=== PATIENT | female | born 1990 | race American Indian/Alaskan Native ===

== ENCOUNTER 2021-11-05 06:05 | Day surgery (SDC) | payer BC ==
[~2021-11-05 06:05] MED LIST: LACTATED RINGERS 1,000 ML IV SCH; MIDAZOLAM 2 MG/2 ML INJ IV NR
--- NOTE | 2021-11-05 06:44 | History and Physical Report ---
History of Present Illness Date of examination: 11/05/21 Chief complaint: Exam under anesthesia, Pap Smear History of present illness: Pt is a 31 year old female with severe anxiety and inability to tolerate in office pelvic examination. Past History Past Medical History: asthma, other (anxiety, Vitamin D deficiency ) Past Surgical History: no surgical history Family/Genetic History: none Social history: no significant social history - Obstetrical History : 0 Medications and Allergies Allergies Allergy/AdvReac Type Severity Reaction Status Date / Time No Known Allergies Allergy Verified 11/03/21 11:45 Home Medications Medication Instructions Recorded Confirmed Last Taken Type No Known Home Medications [No 11/03/21 11/03/21 Unknown History Reported Home Medications] Active Meds: Active Medications Lactated Ringer's (Lactated Ringers) 1,000 mls @ 100 mls/hr IV DIRECT ADI Stop: 11/05/21 23:59 Midazolam HCl (Midazolam 2 Mg/2 Ml Inj) 2 mg IV PREOP NR Stop: 11/05/21 23:59 - Physical Exam Breasts: Positive: deferred Abdomen: Positive: soft Extremities: Positive: normal Results All other labs normal. Assessment and Plan A: Anxiety Cervical Cancer Screening P: Proceed with exam under anesthesia and collection of pap smear
[2021-11-05] MEDS ORDERED: ONDANSETRON 4 MG/2 ML INJ IV PRN (07:35)
[2021-11-05] MEDS ORDERED: ACETAMINOPHEN 325 MG TAB PO PRN (07:35)
[2021-11-05] MEDS ORDERED: KETOROLAC 30 MG/1 ML INJ IV PRN (07:35)
--- NOTE | 2021-11-05 07:35 | Anesthesia Day of Surgery ---
Anesthesia Day of Surgery - Day of Surgery Patient Examined: Yes Patient H&P Reviewed: Yes Patient is NPO: Yes
--- NOTE | 2021-11-05 07:35 | Anesthesia Consultation ---
Anesthesia Consult and Med Hx Date of service: 11/05/21 - Airway Anesthetic Teeth Evaluation: Good ROM Head & Neck: Adequate Mental/Hyoid Distance: Adequate Mallampati Class: Class III Intubation Access Assessment: Possibly Difficult - Pulmonary Exam CTA: Yes - Cardiac Exam Cardiac Exam: RRR - Pre-Operative Health Status ASA Pre-Surgery Classification: ASA2 Proposed Anesthetic Plan: MAC - Pulmonary Hx Smoking: No Hx Asthma: Yes (no INH use in many years) - Cardiovascular System Hx Hypertension: No - Central Nervous System CVA: No - Endocrine Hx Renal Disease: No Hx Liver Disease: No Hx Insulin Dependent Diabetes: No Hx Non-Insulin Dependent Diabetes: No Hx Thyroid Disease: No - Additional Comments Anesthesia Medical History Comments: No prior anesthetics or FHx anesthetic complications.
[2021-11-05] MEDS ORDERED: ONDANSETRON 4 MG/2 ML INJ ONE (07:45)
[2021-11-05] MEDS ORDERED: LIDOCAINE MPF (2%) 20 MG/1 ML VIAL 5 ML ONE (07:45)
[2021-11-05] MEDS ORDERED: fentaNYL 100 MCG/2 ML INJ ONE (07:45)
[2021-11-05] MEDS ORDERED: propofoL 200 MG/20 ML VIAL IV ONE (07:46)
[2021-11-05] MEDS ORDERED: KETAMINE/STERILE WATER 50 MG/ML SYRINGE ONE (08:03)
[2021-11-05] MEDS ORDERED: SILVER NITRATE APPLICATOR 1 EA TP ONE (08:04)
[2021-11-05] MEDS ORDERED: WATER FOR IRRIG STERILE 1,500 ML BOTTLE IR ONE (08:27)
[2021-11-05] MEDS ORDERED: KETOROLAC 30 MG/1 ML INJ ONE (08:28)
--- NOTE | 2021-11-05 08:40 | Operative Report ---
Operative Report Operative Report: Date of Procedure: November 05, 2021 Preoperative Diagnosis: 1) Cervical Cancer Screening 2) Anxiety Postoperative Diagnosis: Same Procedure: Exam under anesthesia, Collection of Pap Smear Surgeon: Aline Villafana MD Anesthesia: MAC Findings: 1) Pt is on her menses today 2) Small retroverted uterus, no adnexal fullness 3) Normal appearing nulliparous cervix EBL: none IVF: 300 mL Urine: 25 mL prior to the procedure Specimen: [facility] Drains: None Disposition: Stable to PACU Indication for procedure: This patient is a 31-year-old nulligravida patient with anxiety and inability to tolerate in office examination who presents for pelvic examination and collection of Pap smear under anesthesia. Procedure in detail: After the risks, benefits, alternatives, and complications of the procedure explained to the patient she gave informed consent for the procedure. She was subsequently taken to the operating room with her IV noted to be running well and placed in the dorsal supine position. SCDs were noted to be in place and functioning. MAC anesthesia was induced without difficulty. The patient was then placed in the dorsolithotomy position. Prior to being prepped ,the patient was noted to have vaginal bleeding indicative of her menses. She was then prepped and draped in normal sterile fashion. A timeout was performed. An exam under anesthesia revealed a small retroverted uterus with and no adnexal fullness. The bladder was then drained of 25 mL of clear urine. A bivalve speculum was placed into the vagina for adequate visualization of the cervix. A broom was used to collect a Pap smear specimen. At this time the speculum was removed from the vagina and the procedure was ended. The patient was replaced to the direct dorsal supine position and awakened from anesthesia without difficulty. She was ultimately taken to the PACU in stable condition.
--- NOTE | 2021-11-05 08:41 | Short Stay Summary ---
Short Stay Documentation Date of service: 11/05/21 - History H&P: dictated Social history: no significant social history - Allergies and Medications Current Medications: Allergies venom-honey bee Allergy (Verified 11/05/21 07:06) Swelling Home Medications Medication Instructions Recorded Confirmed Last Taken Type No Known Home Medications [No 11/03/21 11/03/21 Unknown History Reported Home Medications] Active Medications Acetaminophen (Acetaminophen 325 Mg Tab) 650 mg PO ONCE PRN PRN Reason: Pain, Mild (1-3) Stop: 11/05/21 23:59 Lactated Ringer's (Lactated Ringers) 1,000 mls @ 100 mls/hr IV DIRECT ADI Stop: 11/05/21 23:59 Ketorolac Tromethamine (Ketorolac 30 Mg/1 Ml Inj) 15 mg IV ONCE PRN PRN Reason: Pain, Mild (1-3) Stop: 11/05/21 23:59 Midazolam HCl (Midazolam 2 Mg/2 Ml Inj) 2 mg IV PREOP NR Stop: 11/05/21 23:59 Ondansetron HCl (Ondansetron 4 Mg/2 Ml Inj) 4 mg IV ONCE PRN PRN Reason: Nausea And Vomiting Stop: 11/05/21 14:00 - Physical exam Breasts: deferred - Brief post op/procedure progress note Date of procedure: 11/05/21 Pre-op diagnosis: Anxiety, inability to tolerate in office exam Post-op diagnosis: same Procedure: Exam under anesthesia, collection of Pap smear Anesthesia: MAC Findings: 1) Pt is on her menses today 2) Small retroverted uterus, no adnexal fullness 3) Normal appearing nulliparous cervix Surgeon: CHRISTOPHER VILLAFANA Estimated blood loss: none Pathology: list (Pap smear to [facility]) Specimen disposition: to lab Condition: stable - Hospital course Hospital course: The patient underwent examination under anesthesia and collection of Pap smear which he tolerated well. She was observed in the PACU until she met discharge criteria. She will follow-up in the office in [address] Villafana. - Disposition Condition at discharge: Stable Disposition: 01 HOME / SELF CARE / HOMELESS - Discharge Diagnoses (1) Cervical cancer screening Status: Acute (2) Anxiety Status: Acute Short Stay Discharge Plan Activity: no restrictions Diet: regular Follow up with: TREVON VALDEZ MD [Primary Care Provider] - 7 Days CHRISTOPHER VILLAFANA MD [Staff Physician] - 14 Days (Please schedule follow-up appointment with Dr. Villafana in 2 weeks) Prescriptions: Ibuprofen [Motrin] 600 mg PO Q6H PRN #15 tablet PRN Reason: Pain
--- NOTE | 2021-11-05 09:54 | Post Anesthesia Evaluation ---
- Post Anesthesia Evaluation Patient Participated: Yes Airway Patent: Yes Stable Respiratory Function: Yes Nausea/Vomiting: No Temp > 96.8F: Yes Pain Manageable: Yes Adequeate Hydration: Yes Anesthesia Complications: No
[2021-11-05 11:16] VITALS: BP 103/69
== END 2021-11-05 11:00 | disposition home or self-care (01) ==
LOC: OR 06:05
PROVIDERS: ATTEND Obstetrics & Gynecology
DX: Z12.4 Encounter for screening for malignant neoplasm of cervix (principal); F41.9 Anxiety disorder, unspecified; J45.909 Unspecified asthma, uncomplicated; Z79.899 Other long term (current) drug therapy; Z91.030 Bee allergy status
CPT/HCPCS: 57410; 81025; J1885; J2405; J2704; J3010; J3490; J7120; J2250